=== PATIENT | male | born 1995 | race Caucasian/White ===

== ENCOUNTER 2019-12-06 08:00 | Emergency (ER) | payer BC ==
[~2019-12-06] VITALS: Ht 188 cm; Wt 167.0 kg
[2019-12-06] MEDS ORDERED: FLUOXETINE (08:10)
[2019-12-06] MEDS ORDERED: B/P MED (08:10)
[2019-12-06] MEDS ORDERED: FAMO1TAB26 PO (08:10)
[2019-12-06] MEDS ORDERED: MONT10TA4 PO (08:10)
[2019-12-06] MEDS ORDERED: PROAAER10 INH (08:10)
[2019-12-06 09:07] LABS: BASO # 0.1 10^3/uL (0.0-0.2); BASO % 0.6 % (0.0-1.0); EOS # 0.1 10^3/uL (0.0-0.5); EOS % 1.7 % (0.0-3.0); HEMATOCRIT 43.1 % (42.0-52.0); HEMOGLOBIN 14.3 g/dl (13.5-17.5); LYMPH # 1.3 10^3/uL (1.5-5.0); MEAN CORPUSCULAR HEMOGLOBIN 28.4 pg (27.0-33.0); MEAN CORPUSCULAR HGB CONC 33.2 g/dl (32.0-36.5); MEAN CORPUSCULAR VOLUME 85.5 fl (80.0-96.0); MONO # 0.7 10^3/uL (0.0-0.8); MONO % 9.6 % (0.0-5.0); NEUTROPHILS # 5.4 10^3/uL (1.5-8.5); NEUTROPHILS % 70.3 % (36.0-66.0); PLATELET COUNT, AUTOMATED 296 10^3/uL (150-450); RED BLOOD COUNT 5.04 10^6/uL (4.30-6.10); WHITE BLOOD COUNT 7.7 10^3/uL (4.0-10.0)
[2019-12-06 09:35] LABS: ALT/SGPT 70 U/L (12-78); BILIRUBIN,DIRECT < 0.1 MG/DL (0.0-0.2); BILIRUBIN,TOTAL 0.4 MG/DL (0.2-1.0); LIPASE 68 U/L (73-393); TOTAL PROTEIN 7.4 GM/DL (6.4-8.2)
[2019-12-06] MEDS ORDERED: ISOVUE-370 76% 100ML VIAL As Ordered ONE (10:16)
--- NOTE | 2019-12-06 10:53 | REPVR ---
PROCEDURE INFORMATION: Exam: CT Abdomen And Pelvis Without Contrast Exam date and time: 12/06/2019 10:29 AM Age: 24 years old Clinical indication: Abdominal pain; Flank; Right; Additional info: Ritgh abd pain TECHNIQUE: Imaging protocol: Computed tomography of the abdomen and pelvis without contrast. Radiation optimization: All CT scans at this facility use at least one of these dose optimization techniques: automated exposure control; mA and/or kV adjustment per patient size (includes targeted exams where dose is matched to clinical indication); or iterative reconstruction. COMPARISON: No relevant prior studies available. FINDINGS: Limitations: Evaluation is somewhat limited by lack of IV contrast. Lungs: The visualized lung bases are essentially clear. Liver: The liver is fatty in density. It appears otherwise grossly unremarkable. Gallbladder and bile ducts: No gallstones are evident, but ultrasound would be more sensitive. No gross biliary ductal dilatation. Pancreas: Grossly unremarkable. Spleen: Grossly unremarkable. Adrenals: Grossly unremarkable. Kidneys and ureters: Grossly unremarkable. No hydronephrosis or renal or ureteral calculus. Stomach and bowel: The unopacified small bowel is not significantly distended to suggest obstruction. The large bowel is grossly unremarkable in appearance. Appendix: The appendix appears normal. Intraperitoneal space: No free air or significant free fluid. Vasculature: The abdominal aorta is nonaneurysmal. The left renal vein is noted to be retroaortic. Lymph nodes: No gross pathologic lymphadenopathy. Urinary bladder: Grossly unremarkable. Reproductive: Unremarkable as visualized. Bones/joints: Degenerative changes involve the spine. Soft tissues: Very small fat containing umbilical and bilateral inguinal hernias are present. IMPRESSION: 1. No hydronephrosis, renal or ureteral calculus or other gross acute abnormality identified. 2. Fatty liver. 3. Very small fat containing umbilical and bilateral inguinal hernias. COMMENTS: Depending on suspected etiology of symptoms, consider a targeted ultrasound or contrast enhanced exam. Electronically signed by: Bright Beard On 12/06/2019 10:53:16 AM
[2019-12-06 11:01] VITALS: BP 126/64
== END 2019-12-06 11:38 | disposition home or self-care (01) ==
LOC: M ED 08:00
DX: R10.9 Unspecified abdominal pain (principal); K42.9 Umbilical hernia without obstruction or gangrene; K40.20 Bilateral inguinal hernia, without obstruction or gangrene, not specified as recurrent; K76.0 Fatty (change of) liver, not elsewhere classified; Z79.899 Other long term (current) drug therapy; Z88.0 Allergy status to penicillin